=== PATIENT | male | born 1935 | race Caucasian/White ===

== ENCOUNTER 2023-12-17 04:28 | Day surgery (SDC) | payer OTHER ==
[2023-11-29 10:24] VITALS: BMI 25.8
[2023-12-17] MEDS ORDERED: LIDOCAINE HCL 2% (20ML MULTI-DOSE VIAL) ONE (07:26)
[2023-12-17] MEDS ORDERED: BUPIVACAINE HCL/PF 0.75% 10 ML VIAL ONE (07:27)
[2023-12-17] MEDS ORDERED: DEXAMETHASONE SOD PHOSPHATE 10 MG/1 ML VIAL ONE (07:28)
[2023-12-17] MEDS ORDERED: LIDOCAINE HCL/PF 1% SDV 5ML VIAL ONE (07:28)
[2023-12-17] MEDS ORDERED: ACETAMINOPHEN 500 MG TABLET (FP) PO PRN (10:48)
[2023-12-17 12:41] VITALS: RESP 20; TEMP 97.8
[2023-12-17] MEDS: LIDOCAINE HCL 2% (50ML VIAL) NR ONE ×2 (14:26)
[2023-12-17 14:59] VITALS: BP 132/84; PULSE 75
== END 2023-12-17 15:10 | disposition home or self-care (01) ==
LOC: JASU-SURG 04:28
PROVIDERS: ATTEND Pain Medicine Pain Medicine
PROC: 015 Peripheral Nervous System, Destruction (ICD-10-PCS; principal; 2023-12-17 14:15)
DX: M25.562 Pain in left knee (principal)
CPT/HCPCS: J1100

== ENCOUNTER 2024-01-18 07:30 | Observation (INO) | payer OTHER ==
[2024-01-18 08:25] LABS: INR 1.03 (0.83-1.09); PROTHROMBIN TIME (PATIENT) 11.6 SEC (9.7-13.0)
[2024-01-18 08:27] LABS: ACTIVATED PTT 27.5 SECONDS (25.2-36.5)
[2024-01-18 08:28] LABS: BASO % 0.3 % (0-2.0); HEMATOCRIT 39.6 % (35.4-49); HEMOGLOBIN 13.6 GM/dL (11.7-16.9); LYMPH % 20.4 % (8-40); MCH 31.1 pg (25.7-33.7); MCHC 34.3 g/dl (32.0-35.9); MEAN CELL VOLUME 90.7 fl (80-96); MEAN PLT VOLUME 7.4 fl (7.5-11.1); MONO % 10.3 % (3.8-10.2); PLATELET COUNT 187 10^3/uL (134-434); RBC 4.36 M/mm3 (4.00-5.60); RDW 13.7 % (11.9-15.9); WHITE BLOOD COUNT 6.4 K/mm3 (4.0-10.0)
[2024-01-18 08:41] LABS: POTASSIUM 4.6 mmol/L (3.5-5.1)
[2024-01-18 08:43] LABS: ALBUMIN 3.5 g/dl (3.4-5.0); CALCIUM 8.7 mg/dL (8.5-10.1)
[2024-01-18 08:44] LABS: BLOOD UREA NITROGEN 25.2 mg/dL (7-18); MAGNESIUM 2.2 mg/dL (1.8-2.4)
[2024-01-18 08:45] LABS: PHOSPHOROUS 3.4 mg/dL (2.5-4.9)
[2024-01-18 08:46] LABS: CREATININE 1.2 mg/dL (0.55-1.3)
[2024-01-18 08:48] LABS: TOT PROT 7.1 g/dl (6.4-8.2)
[2024-01-18 08:52] LABS: N-TERMINAL BNP 1212.7 pg/ml (5-450)
[2024-01-18 13:01] VITALS: BMI 27.6
[2024-01-19 07:45] LABS: POTASSIUM 5.2 mmol/L (3.5-5.1)
[2024-01-19 08:01] LABS: CALCIUM 8.7 mg/dL (8.5-10.1)
[2024-01-19 08:02] LABS: BLOOD UREA NITROGEN 20.7 mg/dL (7-18)
[2024-01-19] MEDS: TAMSULOSIN HCL 0.4 MG CAP PO SCH (09:56)
[2024-01-19] MEDS: FINASTERIDE 5 MG TABLET (FP) PO SCH (09:57)
[2024-01-19] MEDS: ASPIRIN 81 MG CHEWABLE TABLETS PO SCH (09:57)
[2024-01-19 17:26] LABS: EPI CELLS 5 /uL (0-25.1); HYALINE CASTS 0 /uL (0-3.1); PH,URINE 5.5 (5.0-8.0); URINE APPEARANCE CLOUDY; URINE BACTERIA >9,000 /uL (0-1359); URINE BILIRUBIN NEGATIVE (NEGATIVE); URINE COLOR YELLOW; URINE GLUCOSE (UA) NEGATIVE (NEGATIVE); URINE KETONE NEGATIVE (NEGATIVE); URINE LEUK ESTERASE 3+ (NEGATIVE); URINE NITRITE POSITIVE (NEGATIVE); URINE PROTEIN NEGATIVE (NEGATIVE); URINE RBC 12 /uL (0-23.9); URINE UROBILINOGEN 0.2 mg/dL (0.2-1.0); URINE WBC 1021 /uL (0-25.8)
[2024-01-19] MEDS: metoPROLOL SUCCINATE 25 MG TAB.SR.24H (FP) PO SCH (21:23)
[2024-01-20 08:59] VITALS: RESP 19; TEMP 97.5
[2024-01-20] MEDS ORDERED: REGADENOSON 0.4 MG/5 ML PRE-FILLED SYRINGE IVPUSH ONE (09:42)
[2024-01-20] MEDS: REGADENOSON 0.4 MG/5 ML PRE-FILLED SYRINGE IVPUSH ONE (10:50)
[2024-01-20] MEDS: TAMSULOSIN HCL 0.4 MG CAP PO SCH (11:34)
[2024-01-20 18:28] VITALS: BP 109/55; PULSE 59
== END 2024-01-20 03:55 | disposition home or self-care (01) ==
LOC: JER 07:30 → JERBED 09:41 → J4W 10:53
PROVIDERS: ADMIT Family Medicine; ATTEND Family Medicine
PROC: 3E033GC Introduction of Other Therapeutic Substance into Peripheral Vein, Percutaneous Approach (ICD-10-PCS; principal; 2024-01-18)
DX: R00.1 Bradycardia, unspecified (principal); I49.8 Other specified cardiac arrhythmias; R01.1 Cardiac murmur, unspecified; I10 Essential (primary) hypertension; N40.0 Benign prostatic hyperplasia without lower urinary tract symptoms; K92.2 Gastrointestinal hemorrhage, unspecified; R00.8 Other abnormalities of heart beat; N21.0 Calculus in bladder; R42 Dizziness and giddiness; Z87.891 Personal history of nicotine dependence
CPT/HCPCS: 36415; 71045-TC-FY; 78452-TC; 80048; 80053; 81003; 83735; 83880; 84100; 84443; 84484; 85025; 85610; 85730; 86850; 86900; 86901; 93005; 93010; 93017; 93306-TC; 96374; 99291; A9502; G0378; J2785